=== PATIENT | female | born 1985 | race Caucasian/White ===

== ENCOUNTER 2016-12-25 07:54 | Inpatient (IN) | payer OTHER ==
[2016-12-16 14:26] VITALS: BMI 22.8
--- NOTE | 2016-12-22 10:04 | HP ---
Admitting History and Physical - Primary Care Physician PCP: faizan - Admission Chief Complaint: High risk for breast cancer History of Present Illness: 31 yo female presents as a high risk for breast cancer patient secondary to family history of breast and ovarian cancer as well as BRCA 1 positive status. Patient has opted to have bilateral prophylactic mastectomy with reconstruction. History Source: Patient Limitations to Obtaining History: No Limitations - Past Medical History ...LMP Comment: 11/23/16 ...: No - Past Surgical History Additional Past Surgical History: left knee medial meniscal tear repair 2005 - Smoking History Smoking history: Never smoked Have you smoked in the past 12 months: No - Alcohol/Substance Use Hx Alcohol Use: Yes (SOCIALLY) Home Medications - Allergies Allergies/Adverse Reactions: Allergies Allergy/AdvReac Type Severity Reaction Status Date / Time codeine Allergy Severe HIVES,VOMIT Verified 12/16/16 14:27 ING,ITCHING Penicillins Allergy Severe RESPIRATORY Verified 12/16/16 14:27 DISTRESS - Home Medications Home Medications: Ambulatory Orders Multivitamins [Tab-A-Vit -] 1 tab PO DAILY 12/16/16 Norethindrone-E.estradiol-Iron [Minastrin 24 Fe Chewable Tab] 1 tab PO HS Family Disease History - Family Disease History Family Disease History: CA: Grandparent (paternal -breast cancer at 47) Other Family History: pat aunt-ovarian cancer at 44. pat uncle-melanoma. mat uncle-melanoma 40s. mat GM-melanoma 70s. pat aunt-melanoma Review of Systems - Review of Systems Constitutional: reports: No Symptoms Cardiovascular: reports: No Symptoms Respiratory: reports: No Symptoms Physical Examination Constitutional: Yes: Well Nourished, Calm Breast(s): Yes: Other (small B cup without skin or nipple discharge noted. Dense breast bilaterally without suspicious masses or adenopathy noted.) Problem List - Problems (1) At high risk for breast cancer Code(s): Z91.89 - [facility] PERSONAL RISK FACTORS, NOT ELSEWHERE CLASSIFIED (2) BRCA gene mutation positive in female Code(s): Z15.01 - GENETIC SUSCEPTIBILITY TO MALIGNANT NEOPLASM OF BREAST Z15.02 - GENETIC SUSCEPTIBILITY TO MALIGNANT NEOPLASM OF OVARY Z15.09 - GENETIC SUSCEPTIBILITY TO OTHER MALIGNANT NEOPLASM Assessment/Plan Plan: Bilateral mastectomy with immediate reconstruction
[2016-12-25] MEDS ORDERED: DEXAMETHASONE SOD PHOSPHATE/PF 10 MG/ML SDV ONE (08:48)
[2016-12-25] MEDS ORDERED: ROPIVACAINE HCL 0.5% 30ML VIAL ONE (08:48)
[2016-12-25] MEDS ORDERED: ONDANSETRON 4 MG/2 ML VIAL ONE ×2 (08:48→14:50)
[2016-12-25] MEDS ORDERED: MIDAZOLAM HCL 2 MG/2 ML SINGLE DOSE VIAL ONE (08:48)
[2016-12-25] MEDS ORDERED: SODIUM CHLORIDE 0.9% P/F 10 ML VIAL IJ ONE (09:10)
[2016-12-25] MEDS ORDERED: BUPIVACAINE HCL/PF 0.5% (5MG/ML) 10 ML VIAL ONE (10:06)
[2016-12-25] MEDS ORDERED: GENTAMICIN SO4 80 MG/2 ML VIAL ONE (10:06)
[2016-12-25] MEDS ORDERED: ceFAZolin SODIUM 1 GM VIAL ONE (10:06)
[2016-12-25] MEDS ORDERED: LIDOCAINE 1%/EPI 1:100000 (20 ML MULTI DOSE VIAL) ONE (10:06)
[2016-12-25] MEDS ORDERED: PROPOFOL 20 ML ONE ×3 (10:22→13:31)
[2016-12-25] MEDS ORDERED: ROCURONIUM BROMIDE 50 MG/5 ML VIAL ONE ×2 (10:23→12:05)
[2016-12-25] MEDS ORDERED: CLINDAMYCIN PHOSPHATE 600 MG/4 ML VIAL ONE (10:56)
[2016-12-25] MEDS ORDERED: PHENYLEPHRINE HCL 10 MG/1 ML SINGLE DOSE VIAL ONE (11:36)
[2016-12-25] MEDS ORDERED: SCOPOLAMINE HYDROBROMIDE 1 PATCH PATCH.TD72 ONE (12:49)
[2016-12-25] MEDS ORDERED: ACETAMINOPHEN 325 MG TABLET (FP) PO PRN (12:58)
[2016-12-25] MEDS ORDERED: NEOSTIGMINE METHYLSULFATE 0.5 MG/ML - 10 ML MDV ONE (13:50)
[2016-12-25] MEDS ORDERED: GLYCOPYRROLATE 0.2 MG/1 ML VIAL ONE (13:50)
[2016-12-25] MEDS ORDERED: PROMETHAZINE HCL 25 MG/1 ML VIAL IVPUSH PRN (14:15)
[2016-12-25] MEDS ORDERED: oxyCODONE HCL 5 MG TABLET PO PRN ×2 (14:15)
[2016-12-25] MEDS ORDERED: ONDANSETRON 4 MG/2 ML VIAL IVPUSH PRN (14:15)
--- NOTE | 2016-12-25 14:36 | OP ---
DATE OF OPERATION: 12/25/2016 PREOPERATIVE DIAGNOSIS: Genetic susceptibility to breast cancer BRCA1 positive. POSTOPERATIVE DIAGNOSIS: Genetic susceptibility to breast cancer BRCA1 positive. PROCEDURE: Bilateral total nipple-sparing mastectomy through an inframammary approach with bilateral [id number]-[id number] reconstruction with AlloDerm. ANESTHESIA: General endotracheal. PRIMARY SURGEON: Leigh Roldan MD FILTER TIP INSPECTOR: LEAH Zavala PRIMARY SURGEON FOR THE BILATERAL [id number] RECONSTRUCTION: Leigh Breaux MD, with his hearing and speech assistant LEAH Amaya COMPLICATIONS: None. INDICATION FOR PROCEDURE: Briefly, the patient is a 31-year-old, premenopausal white female of Ashkenazi [place] heritage. She has a strong family history with her paternal grandmother who had breast cancer at age 47 and a paternal aunt who had ovarian cancer at age 44. There is also a strong family history of melanoma in the family. The patient tested BRCA1 positive with a 5385 insertion simulation back in September 2016. Her sister had undergone prophylactic mastectomy for the same mutation. The patient had a recent MRI which was negative in November 2016. The patient was seen in consultation and understood risk-reduction strategies for breast cancer and wanted to move forward with prophylactic risk-reduction surgery. She understood all risks and complications of the procedure including risk of skin flap necrosis, nipple loss, hematoma, and infection, was willing to proceed. She understood that we do retroareolar biopsies at the time of surgery. If these show cancer, we would remove the nipples. The patient is brought in through same-day surgery on December 25, 2016. In the holding area, site verification was made, and informed consent was obtained. She was marked preoperatively by Plastic Surgery prior to coming into the operating room. She did undergo prepectoral nerve blocks for postoperative pain control. DESCRIPTION OF PROCEDURE: She was then brought into the operating room and laid on the OR table in the supine position. Venodynes were placed on the lower extremities. She received 600 mg of clindamycin prior to incision due to her PENICILLIN allergy. Both breasts were sterilely prepped and draped in the usual fashion, and she underwent general endotracheal anesthesia. Inframammary incisions were marked bilaterally about 8 cm in length in the inframammary folds symmetrically bilaterally. The left breast mastectomy was first performed. Incision was made and the skin edges were everted and the breast was retracted inferiorly using Pendleton clamps. The skin flap was raised using the PEAK radiofrequency device superiorly to the level of the clavicle, medially to the level of the sternum, laterally to the level of the latissimus, and inferiorly below the level of the inframammary fold. The breast was taken down off the pectoralis major muscle using electrocautery and fully removed intact. It was oriented with a long lateral, short superior suture and weighed to allow for proper cosmetic result. Hemostasis was achieved, and the skin flaps were trimmed for good cosmetic result. A retroareolar biopsy was taken underneath the left nipple-areolar complex and sent for frozen section, came back negative. So, the left nipple was spared. At this point, the right mastectomy was performed, again through the symmetrical right breast inframammary incision, again everting the skin edges and retracting the breast inferiorly using Gio clamps. The skin flap was raised using the PEAK radiofrequency device superiorly to the level of the clavicle, medially to the level of the sternum, laterally to the level of the latissimus, and inferiorly below the level of the inframammary fold. The breast was taken down off the pectoralis major muscle using electrocautery from an inferomedial to superolateral and completely removed intact. The specimen was oriented with a long lateral/short superior suture, weighed to allow for appropriate cosmetic result, and sent to Pathology in formalin as right breast nipple-sparing mastectomy. Skin flaps were trimmed, and hemostasis was achieved using electrocautery. A retroareolar biopsy was taken underneath the right nipple-areolar complex and came back negative; so, the right nipple was spared. Wounds were copiously irrigated with warm sterile saline. At this point, Dr. Breaux became the primary surgeon and performed bilateral lmvyqx-eo-ohmwqht reconstructions in the subpectoral location. Two Nick drains will be placed around each implant and brought through separate stab incisions on the lateral skin flaps. AlloDerm was sutured into the inferolateral aspects of both pectoralis major muscles to allow for the tmered-wz-blnbguw reconstruction. The patient will have all the wounds closed by Plastic Surgery and will be extubated at the end of the case and brought to the postanesthesia care unit. She will be recovered and admitted postoperatively for pain management and wound management. All sponge and needle counts are correct at this point in the case, and estimated blood loss is about 80 mL. She is hemodynamically stable at this point of the case. We did use SPY skin perfusion device during the case, and she had excellent skin perfusion bilaterally. LEIGH ROLDAN M.D. [id number]
[2016-12-25] MEDS: ONDANSETRON 4 MG/2 ML VIAL IVPB PRN (14:50)
[2016-12-25] MEDS: DEXTROSE 5%-0.45% SALINE 1,000 ML IV SCH (16:00)
[2016-12-25] MEDS: ACETAMINOPHEN 325 MG TABLET (FP) PO SCH ×2 (17:11→21:30)
[2016-12-25] MEDS: KETOROLAC TROMETHAMINE 10 MG TABLET PO PRN (18:59)
[2016-12-25] MEDS ORDERED: PT OWN MED DRAWER 7, Y5N ONE (20:18)
[2016-12-25] MEDS: CLINDAMYCIN IVPB 300 MG in DEXTROSE 5%-WATER - 48 ML IVPB SCH (20:25)
[2016-12-25] MEDS: traMADol HCL 50 MG TABLET PO PRN (21:30)
[2016-12-25] MEDS ORDERED: ZOLPIDEM TARTRATE 5 MG TABLET PO PRN (22:00)
[2016-12-25] MEDS ORDERED: oxyCODONE HCL 10 MG SUSTAINED ACTING TABLET PO SCH (22:00)
[2016-12-26] MEDS: KETOROLAC TROMETHAMINE 10 MG TABLET PO PRN ×3 (00:35→14:58)
[2016-12-26] MEDS ORDERED: PT OWN MED DRAWER 7, Y5N ONE ×5 (03:00→20:39)
[2016-12-26] MEDS: CLINDAMYCIN IVPB 300 MG in DEXTROSE 5%-WATER - 48 ML IVPB SCH ×3 (03:04→20:54)
[2016-12-26] MEDS: traMADol HCL 50 MG TABLET PO PRN ×5 (03:05→22:24)
[2016-12-26] MEDS: ACETAMINOPHEN 325 MG TABLET (FP) PO SCH ×4 (03:05→22:08)
[2016-12-26] MEDS ORDERED: CLINDAMYCIN IVPB 300 MG in DEXTROSE 5%-WATER - 48 ML IVPB SCH (08:00)
[2016-12-26 08:50] LABS: MCH 32.1 pg (25.7-33.7); MEAN CELL VOLUME 91.7 fl (80-96); MEAN PLT VOLUME 8.8 fl (7.5-11.1); PLATELET COUNT 189 K/MM3 (134-434); RDW 11.4 % (11.6-15.6); WHITE BLOOD COUNT 10.1 K/mm3 (4.0-10.8)
--- NOTE | 2016-12-26 09:08 | PN ---
Progress Note, Physician Chief Complaint: BRCA positive S/P bilateral total nipple sparing mastectomies implant reconstruction History of Present Illness: patient is getting OOB to bathroom using spirometry, Block is working well using tramadol and toradol since she is allergic to codeine. Eating no nausea or vomiting - Current Medication List Current Medications: Active Medications Acetaminophen (Tylenol -) 650 mg PO Q4H PRN PRN Reason: FEVER Acetaminophen (Tylenol -) 650 mg PO Q6H JANI Stop: 12/28/16 15:59 Last Admin: 12/26/16 03:05 Dose: 650 mg Fentanyl (Sublimaze Injection -) 50 mcg IVPUSH [id number] PRN PRN Reason: PAIN Stop: 12/28/16 14:16 Last Admin: 12/25/16 15:05 Dose: 50 mcg Dextrose/Sodium Chloride (D5-1/2ns -) 1,000 mls @ 100 mls/hr IV ASDIR JANI Last Admin: 12/25/16 16:00 Dose: Not Given Clindamycin Phosphate 300 mg/ (Dextrose) 50 mls @ 104 mls/hr IVPB Q8H JANI Last Admin: 12/26/16 03:04 Dose: 104 mls/hr Ketorolac Tromethamine (Toradol) 10 mg PO Q6HPO PRN PRN Reason: PAIN Stop: 12/30/16 17:59 Last Admin: 12/26/16 09:01 Dose: 10 mg Non-Formulary Medication (Norethindrone-E.Estradiol-Iron [Minastrin 24 Fe Chewable Tab]) 1 tab PO HS JANI Ondansetron HCl (Zofran Injection) 4 mg IVPB Q6H PRN PRN Reason: NAUSEA AND/OR VOMITING Last Admin: 12/25/16 14:50 Dose: 4 mg Tramadol HCl (Ultram -) 50 mg PO Q4H PRN PRN Reason: PAIN Last Admin: 12/26/16 06:13 Dose: 50 mg Zolpidem Tartrate (Ambien -) 5 mg PO HS PRN PRN Reason: Insomnia - Objective Vital Signs: Vital Signs Temperature 98.6 F 12/26/16 05:28 Pulse Rate 86 12/26/16 05:28 Respiratory Rate 20 12/26/16 05:28 Blood Pressure 88/37 12/26/16 05:28 O2 Sat by Pulse Oximetry (%) 99 12/26/16 05:28 Constitutional: Yes: Well Nourished, No Distress Breast(s): Yes: Other (Flaps viable bilaterally ,bilateral echymosis, incision intact hung drains functioning) Labs: CBC, BMP 12/26/16 08:00 Problem List - Problems (1) BRCA gene mutation positive in female Code(s): Z15.01 - GENETIC SUSCEPTIBILITY TO MALIGNANT NEOPLASM OF BREAST Z15.02 - GENETIC SUSCEPTIBILITY TO MALIGNANT NEOPLASM OF OVARY Z15.09 - GENETIC SUSCEPTIBILITY TO OTHER MALIGNANT NEOPLASM Assessment/Plan continue Iv antibiotics continue tramadol and toradol for pain spirometry OOB with assistance
--- NOTE | 2016-12-26 09:13 | PN ---
Progress Note (short form) - Note Progress Note: 31F POD1 s/p b/l prophylactic mastectomy with reconstruction under GAETT with b/ l PECS blocks. Pt is doing well, states that pain is well controlled, reports no anesthetic complications.
--- NOTE | 2016-12-26 09:14 | DS ---
Physical Examination Vital Signs: Vital Signs Temperature 98.6 F 12/26/16 05:28 Pulse Rate 86 12/26/16 05:28 Respiratory Rate 20 12/26/16 05:28 Blood Pressure 88/37 12/26/16 05:28 O2 Sat by Pulse Oximetry (%) 99 12/26/16 05:28 Findings/Remarks: Patient underwent Bilateral nipple sparing mastectomies with implant reconstruction for BRCA positivity without complications, Her pain was managed with tramadol and toradol since she is allergic to codeine. No signs of infection. She is ready for discharge. Constitutional: Yes: Well Nourished, No Distress Labs: CBC, BMP 12/26/16 08:00 Discharge Summary Reason For Visit: BILATERAL MAS AND RECON Current Active Problems At high risk for breast cancer (Acute) BRCA gene mutation positive in female (Acute) Condition: Good - Instructions Diet, Activity, Other Instructions: Post Operative Instructions - [facility] We hope your recovery will be uneventful. For those of you who have been given general anesthesia, there is a possibility you might have some lightheadedness and possibly nausea. It is important that each patient, especially those who have had general anesthesia, follow these instructions, please: 1. Do NOT operate a motor vehicle for 24 hours. 2. Do NOT drink any alcoholic beverages for 24 hours. 3. Do NOT take any sedatives, narcotics, or tranquilizers for 24 hours unless specifically ordered by your surgeon. 4. Do NOT undertake any strenuous exercise or outside activity for 24 hours unless specifically permitted by your surgeon. 5. Eat light foods that are easy to digest. If you have any problems with nausea and vomiting, lie down and rest. If it continues, call your surgeon. 6. Call your surgeon AT ONCE if you have problems with: a. Bleeding b. Urinating c. Excessive pain or drainage d. Numbness If any problems occur, call your physician first. If you cannot reach him/her, call the Ambulatory Surgery Unit at [phone], or the Emergency Room at [phone]. Follow up with Drs. Aguiar / Lorenzo in 7 days. Medication: Vicodin E-S OR Percocet 1-2 tablets every 4-6 hrs as needed for 5-7 days. Wound Care: Keep wound dry and clean for 48 hours. You may remove the dressing after 48 hours and may shower. Keep steri-strips in place until follow-up appointment No heavy lifting or strenuous activities. BREAST SURGERY INSTRUCTIONS Too Aguiar M.D., CHINTAN Aguiar M.D., CHINTAN Ventura M.D., FACS 1. Please call the office at to make a follow up appointment with your surgeon. This number can be also used for any urgent issues you may have. 2. Call us immediately if any of the following occur: *Bleeding from the incision or drain site (a small amount is normal) *Fever or chills *Redness and worsening tenderness around the surgical site *Drainage of pus or fluid from the incision or drain site 3. You may change the surgical dressing two (2) days after your surgery, and may shower then. If you have drains, you may shower after they have been removed, until then take a sponge bath. 4. It is normal for there to be some bruising and tenderness around the surgical site, and the breast may also be firm in this area. 5. Please wear a comfortable bra (sports or surgical bra) all day and all night until your first follow-up visit with your surgeon. 6. The pain medicine you have been prescribed may make you constipated; make sure you drink plenty of water. You may use an over the counter laxative if needed. 7. You may resume your normal diet after surgery, although you may want to avoid rich foods for the first twenty-four (24) hours after surgery. Alcoholic drinks should be avoided while taking the prescribed pain medicine. 8. You may resume normal activities as long as there is no discomfort, but do not do upper body exercises until after your follow-up appointment. Do not lift anything heavier than a large phone book. You may resume driving once you have stopped taking the prescribed pain medicine and feel comfortable doing arm movements. NO shower, empty and record FELIZ output twice daily, Wear bra Referrals: Mello Aguiar MD [Staff Physician] - Arnav Breaux MD [Staff Physician] - Disposition: HOME - Home Medications Comprehensive Discharge Medication List: Ambulatory Orders Multivitamins [Tab-A-Vit -] 1 tab PO DAILY 12/16/16 Norethindrone-E.estradiol-Iron [Minastrin 24 Fe Chewable Tab] 1 tab PO HS
--- NOTE | 2016-12-26 16:41 | PN ---
Progress Note, Physician Chief Complaint: s/p bilateral mastectomies with direct implant and alloderm History of Present Illness: POD #1 s/p mastectomies with direct implant placement - Current Medication List Current Medications: Active Medications Acetaminophen (Tylenol -) 650 mg PO Q4H PRN PRN Reason: FEVER Acetaminophen (Tylenol -) 650 mg PO Q6H JANI Stop: 12/28/16 15:59 Last Admin: 12/26/16 10:11 Dose: 650 mg Fentanyl (Sublimaze Injection -) 50 mcg IVPUSH [id number] PRN PRN Reason: PAIN Stop: 12/28/16 14:16 Last Admin: 12/25/16 15:05 Dose: 50 mcg Dextrose/Sodium Chloride (D5-1/2ns -) 1,000 mls @ 100 mls/hr IV ASDIR JANI Last Admin: 12/25/16 16:00 Dose: Not Given Clindamycin Phosphate 300 mg/ (Dextrose) 50 mls @ 104 mls/hr IVPB Q8H [facility] Last Admin: 12/26/16 11:26 Dose: 104 mls/hr Ketorolac Tromethamine (Toradol) 10 mg PO Q6HPO PRN PRN Reason: PAIN Stop: 12/30/16 17:59 Last Admin: 12/26/16 14:58 Dose: 10 mg Multivitamins/Minerals/Vitamin C (Tab-A-Vit -) 1 tab PO DAILY [facility] Non-Formulary Medication (Norethindrone-E.Estradiol-Iron [Minastrin 24 Fe Chewable Tab]) 1 tab PO HS [facility] Ondansetron HCl (Zofran Injection) 4 mg IVPB Q6H PRN PRN Reason: NAUSEA AND/OR VOMITING Last Admin: 12/25/16 14:50 Dose: 4 mg Tramadol HCl (Ultram -) 50 mg PO Q4H PRN PRN Reason: PAIN Last Admin: 12/26/16 11:26 Dose: 50 mg Zolpidem Tartrate (Ambien -) 5 mg PO HS PRN PRN Reason: Insomnia - Objective Vital Signs: Vital Signs Temperature 98.1 F 12/26/16 14:06 Pulse Rate 80 12/26/16 14:06 Respiratory Rate 16 12/26/16 14:06 Blood Pressure 97/53 12/26/16 14:06 O2 Sat by Pulse Oximetry (%) 100 12/26/16 14:06 Constitutional: Yes: Well Nourished, Calm Eyes: Yes: WNL HENT: Yes: WNL Neck: Yes: WNL Cardiovascular: Yes: WNL Respiratory: Yes: WNL Gastrointestinal: Yes: WNL ...Rectal Exam: Yes: Deferred Genitourinary: Yes: WNL Breast(s): Yes: WNL, Other (Bilateral breasts with appropriate swelling and bruising. Incision c/d/I. Steri strips in place. FELIZ drains holding suction.) Musculoskeletal: Yes: WNL Extremities: Yes: WNL Edema: No Peripheral Pulses WNL: Yes Integumentary: Yes: WNL Wound/Incision: Yes: Clean/Dry Neurological: Yes: WNL ...Motor Strength: WNL Psychiatric: Yes: WNL Additional Findings/Remarks: cont with pain management cont with FELIZ drains to suction cont with sabrina santamaria d/c [place] Labs: CBC, BMP 12/26/16 08:00
[2016-12-26] MEDS: DEXTROSE 5%-0.45% SALINE 1,000 ML IV SCH (17:08)
[2016-12-27] MEDS ORDERED: PT OWN MED DRAWER 7, Y5N ONE ×2 (03:56→04:06)
[2016-12-27] MEDS: KETOROLAC TROMETHAMINE 10 MG TABLET PO PRN (04:06)
[2016-12-27] MEDS: CLINDAMYCIN IVPB 300 MG in DEXTROSE 5%-WATER - 48 ML IVPB SCH (04:06)
[2016-12-27] MEDS: ACETAMINOPHEN 325 MG TABLET (FP) PO SCH ×2 (04:07→09:35)
[2016-12-27 07:12] VITALS: TEMP 97.6
[2016-12-27] MEDS: ONDANSETRON 4 MG/2 ML VIAL IVPB PRN (08:37)
[2016-12-27 08:40] VITALS: BP 98/50; PULSE 70
[2016-12-27] MEDS ORDERED: MULTIVITAMINS (DAILY MVI) TABLET (FP) PO SCH (10:00)
--- NOTE | 2016-12-27 10:17 | OP ---
DATE OF OPERATION: 12/25/2016 PREOPERATIVE DIAGNOSES: 1. Bilateral acquired chest wall deformity status post bilateral mastectomy (611.89). 2. Personal history of genetic carcinoma. POSTOPERATIVE DIAGNOSES: 1. Bilateral acquired chest wall deformity status post bilateral mastectomy (611.89). 2. Personal history of genetic carcinoma. PROCEDURE: 1. Right immediate breast reconstruction utilizing immediate insertion of silicone breast implant and AlloDerm reconstruction. 2. Left immediate breast reconstruction utilizing immediate insertion of silicone breast implant and AlloDerm reconstruction. 3. Intravenous injection of indocyanine green dye and intraoperative diagnostic evaluation of non-coronary intraoperative fluorescein vascular angiography x 2. SURGEON: Dr. Shant Breaux CROSSING WATCHMAN: Monique Lima PA-C ANESTHESIA: GENERAL OPERATIVE PROCEDURE IN DETAIL: The patient was taken to the operating room. After induction of general anesthesia in the supine position, both arms were extended and padded. Venodyne boots were placed. The entire chest wall was painted with ChloraPrep solution over its entire extent, and sterile drapes were placed in the usual fashion. The markings, which had been made in the standing position preoperatively, were reoutlined with the patient's knowledge. Time-out procedure was performed. Attention was turned by Dr. Leigh Aguiar to the mastectomies. Bilateral inframammary incisions were made and Dr. Leigh Aguiar performed mastectomies. This will be dictated under separate cover. Upon completion of the mastectomies, the wounds were copiously irrigated and attention was turned to the right breast. A subpectoral dissection was begun on the right breast, superiorly from the second rib, medially to the sternal fibers, and down to the inframammary fold, elevating the pectoralis major muscle from its insertion. At this point, an 8.0 x 16.0 sheet of AlloDerm was brought into the field and sutured superiorly along the pectoralis major muscle after rehydration. This was carried along the lateral mammary fold and down the side of the breast reconstruction. At this point, an AlloDerm Contour perforated medium sheaths of material placed bilaterally. She also had Huxiu.come Zwamy cohesive breast implants, style SCF, 385-mL implants placed into each breast pocket. The left breast tissue removed was 191 gm, and the right breast approximately 219 gm. This implant was placed and then sutured with 3-0 Vicryl suture continued along the inframammary fold, completely covering the implant itself. The exact same procedure was carried out symmetrically on the opposite breast, also placing a [facility] cohesive breast implants, style SCF, 385-mL implant in the same subpectoral pocket. Good symmetry was seen in the sitting position. After the implants were in place, the patient was injected with 10 mL of Isocyanide green dye and the Spy imaging system was brought into the field. The skin flowed to the right and left breasts and the nipple areolar complex, and the entire skin flaps were evaluated and seen to be viable with good blood flow. Two Dhruv-Macias drains were brought out through separate stab wounds laterally. The Smart Infuser pump catheter was inserted medially and into the subpectoral position. Both wounds were closed symmetrically using 3-0 PDS suture on the deep tissue, 3-0 in a deep dermal fashion, and 4-0 in a subcuticular fashion. Both wounds were dressed sterilely with Mastisol and Steri-Strips with a surgical bra and a compression strap. The patient tolerated the procedure well. She had SPY intraoperative angiograms which appeared to show good blood flow bilaterally. She was awakened, extubated and transferred to the recovery room in satisfactory condition. The trust operations assistant was present during the entire portion of the operation and closure. LEIGH BREAUX M.D. [id number]
--- NOTE | 2016-12-27 11:01 | PN ---
Progress Note, Physician Chief Complaint: The patient has a strong family history of breast cancer and has Ashkenazi cheondoism heritage. She was found to be BRCA1+ and chose to undergoe prophylactic bilateral mastectomies for risk reduction. She underwent the surgery on 12/25/16 and was admitted postoperatively for postop pain control and wound management. - Current Medication List Current Medications: Active Medications Acetaminophen (Tylenol -) 650 mg PO Q4H PRN PRN Reason: FEVER Acetaminophen (Tylenol -) 650 mg PO Q6H JANI Stop: 12/28/16 15:59 Last Admin: 12/27/16 09:35 Dose: Not Given Fentanyl (Sublimaze Injection -) 50 mcg IVPUSH [id number] PRN PRN Reason: PAIN Stop: 12/28/16 14:16 Last Admin: 12/25/16 15:05 Dose: 50 mcg Dextrose/Sodium Chloride (D5-1/2ns -) 1,000 mls @ 100 mls/hr IV ASDIR JANI Last Admin: 12/26/16 17:08 Dose: Not Given Clindamycin Phosphate 300 mg/ (Dextrose) 50 mls @ 104 mls/hr IVPB Q8H JANI Last Admin: 12/27/16 04:06 Dose: 104 mls/hr Ketorolac Tromethamine (Toradol) 10 mg PO Q6HPO PRN PRN Reason: PAIN Stop: 12/30/16 17:59 Last Admin: 12/27/16 04:06 Dose: 10 mg Multivitamins/Minerals/Vitamin C (Tab-A-Vit -) 1 tab PO DAILY [facility] Last Admin: 12/27/16 09:35 Dose: Not Given Non-Formulary Medication (Norethindrone-E.Estradiol-Iron [Minastrin 24 Fe Chewable Tab]) 1 tab PO HS JANI Ondansetron HCl (Zofran Injection) 4 mg IVPB Q6H PRN PRN Reason: NAUSEA AND/OR VOMITING Last Admin: 12/27/16 08:37 Dose: 4 mg Tramadol HCl (Ultram -) 50 mg PO Q4H PRN PRN Reason: PAIN Last Admin: 12/26/16 22:24 Dose: 50 mg Zolpidem Tartrate (Ambien -) 5 mg PO HS PRN PRN Reason: Insomnia - Objective Vital Signs: Vital Signs Temperature 97.6 F 12/27/16 06:00 Pulse Rate 70 12/27/16 08:40 Respiratory Rate 17 12/27/16 06:00 Blood Pressure 98/50 12/27/16 08:40 O2 Sat by Pulse Oximetry (%) 100 12/27/16 08:43 Constitutional: Yes: No Distress, Calm Eyes: Yes: WNL HENT: Yes: Atraumatic, Normocephalic Neck: Yes: WNL Cardiovascular: Yes: Regular Rate and Rhythm Respiratory: Yes: Regular, CTA Bilaterally Gastrointestinal: Yes: Normal Bowel Sounds, Soft ...Rectal Exam: Yes: Deferred Genitourinary: Yes: WNL Breast(s): Yes: Other (Wounds clean, dry, and intact. Drains functioning well. Skin flaps warm and viable.) Musculoskeletal: Yes: WNL Extremities: Yes: WNL Integumentary: Yes: WNL Wound/Incision: Yes: Clean/Dry, Well Approximated Neurological: Yes: Alert, Oriented ...Motor Strength: WNL Psychiatric: Yes: WNL Labs: CBC, BMP 12/26/16 08:00 Problem List - Problems (1) BRCA gene mutation positive in female Assessment/Plan: The patient is doing well POD#2 s/p bilateral prophylactic nipple sparing mastectomies and direct to implant reconstructions. She has good pain control and her wounds are clean, dry, and intact. Skin flaps are warm and viable. Dressing was changed today. She is stable for discharge today. Plan for follow up with Drs. Aguiar and Namita in 1 week. No heavy activity or lifting. Keep compressive bra in place day/night. No bath/shower until drains removed. Ultram and toradol for pain and cipro antibiotics 2x/day until drains removed. Code(s): Z15.01 - GENETIC SUSCEPTIBILITY TO MALIGNANT NEOPLASM OF BREAST Z15.02 - GENETIC SUSCEPTIBILITY TO MALIGNANT NEOPLASM OF OVARY Z15.09 - GENETIC SUSCEPTIBILITY TO OTHER MALIGNANT NEOPLASM
[2016-12-27] MEDS ORDERED: diphenhydrAMINE HCL 25 MG CAPSULE (FP) PO ONE (11:30)
[2016-12-27] MEDS: traMADol HCL 50 MG TABLET PO PRN (11:36)
--- NOTE | 2016-12-30 17:13 | PATH ---
Surgical Pathology Report Patient Name: MICHAELA RESENDIZ Med. Rec. #: [id number] /Age/Gender: 1985 (Age: 31) / F Account: [id number] Location: [facility] MED-SURG Taken: 12/25/2016 Received: 12/25/2016 Reported: 12/30/2016 Physicians: Mello Aguiar M.D. Specimen(s) Received A: RIGHT BREAST RETROAREOLAR BIOPSY (FS) B: LEFT BREAST RETROAREOLAR BIOPSY (FS) C: RIGHT BREAST MASTECTOMY D: LEFT BREAST MASTECTOMY Clinical History Bilateral prophylactic BRCA 1+ Intraoperative Consult Diagnosis A. Right breast retroareolar biopsy, frozen section: Negative for malignancy. B. Left breast retroareolar biopsy, frozen section: Negative for malignancy. Colin Kamara M.D, 12/25/16 Final Diagnosis A. retroareola, right breast, biopsy (FS): Benign breast tissue showing focal usual ductal HYPERPLASIA (UDH). Negative for malignancy. B. retroareola, left breast, biopsy (FS): Benign breast tissue. Negative for malignancy. C. Breast, right, nipple-sparing mastectomy: Benign breast tissue showing fibrocystic changes. D. breast, left, nipple-sparing mastectomy: BENIGN breast tissue showing fibrocystic changes. Electronically Signed Rachel Kamara M.D. Gross Description A. Received fresh labeled "right breast retroareolar biopsy," is a 1.3 x 1.0 x 0.2 cm portion of red and yellow soft tissue. A frozen section is performed on the specimen. The frozen section residue is entirely submitted in one cassette. B. Received fresh labeled "left breast retroareolar biopsy," are 2 red and yellow portions of soft tissue measuring 0.5 x 0.4 x 0.2 cm and 1.3 x 0.8 x 0.2 cm. A frozen section is performed on the specimens. The frozen section residue is entirely submitted in one cassette. C. Received in formalin, labeled "right breast mastectomy," is a 233 gram, 14.8 x 11.5 x 3.0 cm. right mastectomy specimen with a short suture marking the superior aspect and a long suture marking the lateral aspect of the specimen, per the surgeon. There is no skin or nipple present. The deep margin is inked black and the anterior soft tissue margin is inked blue. The specimen is serially sectioned from lateral to medial. Sectioning reveals diffuse dense, white fibrous tissue. [employer] sections are submitted in 14 cassettes as follows: 1-3-upper outer quadrant; 4-6-lower outer quadrant; 7-9-upper inner quadrant; 10-12-lower inner quadrant; 13-anterior soft tissue margin; 14-deep margin. D. Received in formalin, labeled "left breast mastectomy," is a 196 gram, 13.0 x 10.0 x 2.8 cm. left mastectomy specimen with a short suture marking the superior aspect and a long suture marking the lateral aspect of the specimen, per the surgeon. There is no skin or nipple present. The deep margin is inked black and the anterior soft tissue margin is inked blue. The specimen is serially sectioned from medial to lateral. Sectioning reveals diffuse dense, white fibrous tissue. [employer] sections are submitted in 14 cassettes as follows: 1-3-upper outer quadrant; 4-6-lower outer quadrant; 7-9-upper inner quadrant; 10-12-lower inner quadrant; 13-anterior soft tissue margin; 14-deep margin. Total formalin fixation time: Approximately 30 hours. HAYDEN12/26/2016 [email or web address]/26/2016
== END 2016-12-27 13:00 | disposition home or self-care (01) | DRG 585 ==
LOC: FM/S 07:54 → EDSTATUS 09:30 → FM/S 15:46
PROVIDERS: ADMIT Surgery Surgical Oncology; ATTEND Surgery Surgical Oncology
PROC: 0HTV0ZZ Resection of Bilateral Breast, Open Approach (ICD-10-PCS; principal; 2016-12-25 10:48)
PROC: 0HRV0JZ Replacement of Bilateral Breast with Synthetic Substitute, Open Approach (ICD-10-PCS; 2016-12-25 10:48)
DX: Z40.01 Encounter for prophylactic removal of breast (principal); Z15.01 Genetic susceptibility to malignant neoplasm of breast; Z15.02 Genetic susceptibility to malignant neoplasm of ovary; Z91.89 Other specified personal risk factors, not elsewhere classified; M95.4 Acquired deformity of chest and rib
CPT/HCPCS: 36415; 84703; 85027; 88307-TC; 88331-TC; 94010; 94760